=== PATIENT | male | born 1955 | race Caucasian/White ===

== ENCOUNTER 2019-10-31 13:13 | Emergency (ER) | payer OTHER, BC ==
[~2019-10-31] VITALS: Ht 177.8 cm; Wt 122.0 kg
[2019-10-31 13:24] VITALS: BP 131/76; Ht 177.8 cm; Wt 122.0 kg
== END 2019-10-31 15:14 | disposition home or self-care (01) ==
LOC: ED 13:13
DX: S00.212A Abrasion of left eyelid and periocular area, initial encounter (principal); X58.XXXA Exposure to other specified factors, initial encounter; Y93.89 Activity, other specified; Y92.89 Other specified places as the place of occurrence of the external cause; Y99.8 Other external cause status
CPT/HCPCS: J7040; V2632